=== PATIENT | male | born 1980 | race African-American/Black ===

== ENCOUNTER 2017-02-10 12:27 | Inpatient (IN) | payer OTHER ==
[2017-02-10 15:04] VITALS: BMI 28.5
--- NOTE | 2017-02-10 18:15 | HP ---
COWS - Scale Resting Pulse: 1= ID [id number] Sweatin= Chills/Flushing Restless Observation: 1= Difficult to Sit Still Pupil Size: 0= Normal to Room Light Bone or Joint Aches: 2= Severe Diffuse Aches Runny Nose/ Eye Tearin= Runny Nose/Eyes GI Upset > 30mins: 2= Nausea/Diarrhea Tremor Observation: 2= Slight Tremor Visible Yawning Observation: 1= 1-2x During Session Anxiety or Irritability: 2=Irritable/Anxious Goose Flesh Skin: 0=Smooth Skin COWS Score: 14 Admission [facility] Chief Complaint: withdrawal sx Allergies/Adverse Reactions: Allergies Allergy/AdvReac Type Severity Reaction Status Date / Time sulfur [From Sulfur-8] Allergy Verified 02/10/17 18:12 History of Present Illness: 36 years old male with long history of opiate nicotine dependence has hypertension rhnitis and anxiety is admitted to detox Exam Limitations: No Limitations - Ebola screening Have you traveled outside of the country in the last 21 days: No Have you had contact with anyone from an Ebola affected area: No Have you been sick,other than usual withdrawal symptoms: No Do you have a fever: No - Review of Systems Constitutional: Chills, Changes in sleep, Weight Stable EENT: reports: No Symptoms Reported Respiratory: reports: No Symptoms reported Cardiac: reports: No Symptoms Reported GI: reports: Nausea, Poor Appetite, Poor Fluid Intake, Abdominal cramping : reports: No Symptoms Reported Musculoskeletal: reports: Back Pain, Joint Pain, Muscle Pain, Neck Pain Integumentary: reports: No Symptoms Reported Neuro: reports: Tremors Endocrine: reports: No Symptoms Reported Hematology: reports: No Symptoms Reported Psychiatric: reports: Judgement Intact, Orientated x3, Anxious Other Systems: Reviewed and Negative Patient History - Patient Medical History Hx Anemia: No Hx Asthma: No Hx Chronic Obstructive Pulmonary Disease (COPD): No Hx Cancer: No Hx Cardiac Disorders: No Hx Congestive Heart Failure: No Hx Hypertension: Yes Hx Hypercholesterolemia: No Hx Pacemaker: No Hx Seizures: No Hx Dementia: No Hx Diabetes: No Hx Gastrointestinal Disorders: No Hx Liver Disease: No Hx Genitourinary Disorders: No Hx Sexually Transmitted Disorders: No Hx Renal Disease (ESRD): No Hx Thyroid Disease: No Hx Human Immunodeficiency Virus (HIV): No Hx Hepatitis C: No Hx Depression: Yes Hx Suicide Attempt: No Hx Bipolar Disorder: No Hx Schizophrenia: No - Patient Surgical History Past Surgical History: No - PPD History Previous Implant?: Yes Documented Results: Negative w/o proof Implanted On Prior [facility] Admission?: No PPD to be Administered?: Yes - Smoking Cessation Smoking history: Current every day smoker Have you smoked in the past 12 months: Yes Aproximately how many cigarettes per day: 5 Cigars Per Day: 0 Hx Chewing Tobacco Use: No Initiated information on smoking cessation: Yes 'Breaking Loose' booklet given: 02/10/17 - Substance & Tx. History Hx Alcohol Use: No Hx Substance Use: Yes Substance Use Type: Opiates Hx Substance Use Treatment: Yes - Substances Abused Alcohol Route: Inhalation Frequency: Daily Amount used: 5 bags Age of first use: 33 Date of Last Use: 02/10/17 Family Disease History - Family Disease History Family History: Unremarkable Admission Physical Exam BHS - Vital Signs Vital Signs: Vital Signs - 24 hr 02/10/17 15:02 Temperature 96.2 F L Pulse Rate 81 Respiratory 18 Rate Blood Pressure 146/90 - Physical General Appearance: Yes: Appropriately Dressed, Moderate Distress, Tremorous, Irritable, Sweating, Anxious HEENTM: Yes: Hearing grossly Normal, Normal ENT Inspection, Normocephalic, Normal Voice Respiratory: Yes: Chest Non-Tender, Lungs Clear, Normal Breath Sounds, No Respiratory Distress, No Accessory Muscle Use Neck: Yes: Supple, Trachea in good position Breast: Yes: Breasts Symetrical Cardiology: Yes: Regular Rhythm, Regular Rate, S1, S2 Abdominal: Yes: Non Tender, Soft Genitourinary: Yes: Within Normal Limits Back: Yes: Normal Inspection Musculoskeletal: Yes: full range of Motion, Gait Steady, Back pain, Muscle Pain Extremities: Yes: Normal Range of Motion, Non-Tender, Tremors Neurological: Yes: Fully Oriented, Alert, Motor Strength 5/5, Normal Response, Depressed Affect Integumentary: Yes: Warm Lymphatic: Yes: Within Normal Limits - Diagnostic (1) Opioid dependence with withdrawal Current Visit: Yes Status: Acute (2) Nicotine dependence Current Visit: Yes Status: Acute Qualifiers: Nicotine product type: cigarettes Substance use status: in withdrawal Qualified Code(s): F17.213 - Nicotine dependence, cigarettes, with withdrawal (3) Hypertension Current Visit: Yes Status: Chronic Qualifiers: Hypertension type: essential hypertension Qualified Code(s): I10 - Essential (primary) hypertension (4) Rhinitis, allergic Current Visit: Yes Status: Chronic Qualifiers: Allergic rhinitis trigger: pollen (5) Anxiety Current Visit: Yes Status: Suspected Cleared for Admission [facility] - Detox or Rehab [facility] Level of Care: Medically Managed Detox Regimen/Protocol: Methadone [facility] Breath Alcohol Content Breath Alcohol Content: 0 Urine Drug Screen - Results Drug Screen Negative: No Urine Drug Screen Results: OPI-Opiates
[2017-02-10] MEDS ORDERED: MENTHOL/PHENOL 1 EACH UD MM PRN (18:17)
[2017-02-10] MEDS ORDERED: P-EPHED 60MG/TRIPROLIDI 2.5MG TABLET PO PRN (18:17)
[2017-02-10] MEDS ORDERED: MAGNESIUM CITRATE 300 ML BOTTLE PO PRN (18:17)
[2017-02-10] MEDS ORDERED: ACETAMINOPHEN 325 MG TABLET (FP) PO PRN (18:17)
[2017-02-10] MEDS ORDERED: MAG HYDROX/AL HYDROX/SIMETH 30 ML UNIT-DOSE CUP PO PRN (18:17)
[2017-02-10] MEDS ORDERED: IBUPROFEN 400 MG TABLET (FP) PO PRN (18:17)
[2017-02-10] MEDS ORDERED: NICOTINE POLACRILEX 2 MG GUM BC PRN (18:17)
[2017-02-10] MEDS ORDERED: guaiFENesin/D-METHORPHAN HB 10 ML UNIT-DOSE CUPS PO PRN (18:17)
[2017-02-10] MEDS ORDERED: MAGNESIUM HYDROX 2400MG/30ML ORAL SUSPENSION 30 ML CUP PO PRN (18:17)
[2017-02-10] MEDS ORDERED: LOPERAMIDE HCL 2 MG CAPSULE PO PRN (18:17)
[2017-02-10] MEDS ORDERED: LISINOPRIL 20 MG TABLET (FP) PO SCH (18:30)
[2017-02-10] MEDS ORDERED: amLODIPine BESYLATE 10 MG TABLET (FP) PO SCH (18:30)
[2017-02-10] MEDS ORDERED: METHADONE HCL 10 MG TABLET (FOR DETOX USE ONLY) PO ONE ×2 (19:00→23:00)
[2017-02-10] MEDS: diazePAM 5 MG TABLET PO PRN (20:37)
[2017-02-10] MEDS: LORATADINE 10 MG TABLET PO SCH (22:09)
[2017-02-10] MEDS: THIAMINE HCL 100 MG TABLET (FP) PO SCH (22:09)
[2017-02-10] MEDS: ASPIRIN 81 MG CHEWABLE TABLETS PO SCH (22:09)
[2017-02-10] MEDS: LISINOPRIL 10 MG TABLET (FP) PO SCH (22:10)
[2017-02-10] MEDS: amLODIPine BESYLATE 10 MG TABLET (FP) PO SCH (22:10)
[2017-02-10 22:57] LABS: URINE APPEARANCE CLEAR; URINE BILIRUBIN NEGATIVE (NEGATIVE); URINE BLOOD NEGATIVE (NEGATIVE); URINE COLOR YELLOW; URINE GLUCOSE (UA) NEGATIVE (NEGATIVE); URINE KETONE NEGATIVE (NEGATIVE); URINE LEUK ESTERASE NEGATIVE (NEGATIVE); URINE NITRITE NEGATIVE (NEGATIVE); URINE PROTEIN NEGATIVE (NEGATIVE); URINE UROBILINOGEN NEGATIVE E.U./dl (0.2-1.0)
[2017-02-11] MEDS: diazePAM 5 MG TABLET PO PRN ×2 (06:05→19:27)
--- NOTE | 2017-02-11 09:36 | CONSULT ---
[facility] Psychiatric Consult - Data Date of interview: 02/11/17 Admission source: [facility] Identifying data: First admission to [facility] for this 36 y/o AA male seeking detox treatment for opiate dependence.Patient is single,a father of three, homeless,unemployed and supported on Public Assistance. Substance Abuse History: - Smoking Cessation. Smoking history: Current every day smoker. Have you smoked in the past 12 months: Yes. Aproximately how many cigarettes per day: 5. Cigars Per Day: 0. Hx Chewing Tobacco Use: No. Initiated information on smoking cessation: Yes. 'Breaking Loose' booklet given : 02/10/17. - Substance & Tx. History. Hx Alcohol Use: No. Hx Substance Use: Yes. Substance Use Type: Opiates. Hx Substance Use Treatment: Yes. - Substances Abused. Heroin. Route: Inhalation. Frequency: Daily. Amount used: 5 bags. Age of first use: 33. Date of Last Use: 02/10/17. Confirmed by patient. Medical History: Hypertension. Psychiatric History: Patient denies. Physical/Sexual Abuse/Trauma History: Patient denies. Additional Comment: Urine Drug Screen Results: OPI-Opiates.Noted. Mental Status Exam - Mental Status Exam Alert and Oriented to: Time, Place, Person Cognitive Function: Good Patient Appearance: Well Groomed Mood: Withdrawn, Apprehensive Affect: Mood Congruent Patient Behavior: Fatigued, Appropriate, Cooperative Speech Pattern: Clear Voice Loudness: Normal Thought Process: Goal Oriented Thought Disorder: Not Present Hallucinations: Denies Suicidal Ideation: Denies Homicidal Ideation: Denies Insight/Judgement: Poor Sleep: Well Appetite: Good Muscle strength/Tone: Normal Gait/Station: Normal Psychiatric Findings - Problem List ([place] 1, 2,3) (1) Opioid dependence with withdrawal Current Visit: Yes Status: Acute (2) Nicotine dependence Current Visit: Yes Status: Acute Qualifiers: Nicotine product type: cigarettes Substance use status: in withdrawal Qualified Code(s): F17.213 - Nicotine dependence, cigarettes, with withdrawal (3) Substance induced mood disorder Current Visit: Yes Status: Acute (4) Hypertension Current Visit: Yes Status: Chronic Qualifiers: Hypertension type: essential hypertension Qualified Code(s): I10 - Essential (primary) hypertension - Initial Treatment Plan Initial Treatment Plan: Psychoeducation.Detoxification.Observation.
[2017-02-11] MEDS ORDERED: METHADONE HCL 10 MG TABLET (FOR DETOX USE ONLY) PO ONE (10:00)
--- NOTE | 2017-02-11 10:47 | PN ---
BHS COWS - Scale Resting Pulse: 0= [place] 80 or Below Sweatin= Chills/Flushing Restless Observation: 3= Extraneous Movement Pupil Size: 2= Moderately Dilated Bone or Joint Aches: 4=Acute Joint/Muscle Pain Runny Nose/ Eye Tearin= Nasal Congestion GI Upset > 30mins: 1= Stomach Cramp Tremor Observation of Outstretched Hands: 1= Tremor [place], Not Seen Yawning Observation: 2= >3x During Session Anxiety or Irritability: 2=Irritable/Anxious Goose Flesh Skin: 0=Smooth Skin COWS Score: 17 BHS Progress Note (SOAP) Subjective: ANXIETY,IRRITABILITY,MUSCLE ACHES/SPASMS. Objective: 02/11/17 10:46 Vital Signs Temperature 95.8 F L 02/11/17 09:59 Pulse Rate 78 02/11/17 09:59 Respiratory Rate 18 02/11/17 09:59 Blood Pressure 130/70 02/11/17 09:59 O2 Sat by Pulse Oximetry (%) Laboratory Last Values Urine Color Yellow 02/10/17 16:00 Urine Appearance Clear 02/10/17 16:00 Urine pH 5.0 (5.0-8.0) 02/10/17 16:00 Ur Specific [place] 1.026 (1.001-1.035) 02/10/17 16:00 Urine Protein Negative (NEGATIVE) 02/10/17 16:00 Urine Glucose (UA) Negative (NEGATIVE) 02/10/17 16:00 Urine Ketones Negative (NEGATIVE) 02/10/17 16:00 Urine Blood Negative (NEGATIVE) 02/10/17 16:00 Urine Nitrite Negative (NEGATIVE) 02/10/17 16:00 Urine Bilirubin Negative (NEGATIVE) 02/10/17 16:00 Urine Urobilinogen Negative E.U./dl (0.2-1.0) 02/10/17 16:00 Ur Leukocyte Esterase Negative (NEGATIVE) 02/10/17 16:00 OTHER LABS PENDING Assessment: 02/11/17 10:46 WITHDRAWAL SX Plan: CONTINUE DETOX
[2017-02-11] MEDS: NICOTINE 14 MG/24 HOURS TOPICAL PATCH TD SCH (10:52)
[2017-02-11] MEDS: PRENATAL VITAMINS W/ FOLIC ACID TABLET (FP) PO SCH (10:52)
--- NOTE | 2017-02-11 11:24 | EKG ---
Test Reason : Blood Pressure : / mmHG Vent. Rate : 061 BPM Atrial Rate : 061 BPM P-R Int : 138 ms QRS Dur : 088 ms QT Int : 446 ms P-R-T Axes : 023 070 029 degrees QTc Int : 448 ms NORMAL SINUS RHYTHM NO PREVIOUS ECGS AVAILABLE Confirmed by JOHNNY SHANNON MD ([id number]) on 02/11/2017 11:24:08 AM Referred By: Confirmed By:JOHNNY SHANNON MD
[2017-02-11] MEDS: CYCLOBENZAPRINE HCL 10 MG TABLET (FP) PO SCH ×2 (13:10→22:17)
[2017-02-11] MEDS: LORATADINE 10 MG TABLET PO SCH (22:17)
[2017-02-11] MEDS: LISINOPRIL 10 MG TABLET (FP) PO SCH (22:17)
[2017-02-11] MEDS: ASPIRIN 81 MG CHEWABLE TABLETS PO SCH (22:17)
[2017-02-11] MEDS: amLODIPine BESYLATE 10 MG TABLET (FP) PO SCH (22:17)
[2017-02-11] MEDS: THIAMINE HCL 100 MG TABLET (FP) PO SCH (22:18)
[2017-02-11] MEDS: diphenhydrAMINE HCL 50 MG CAPSULE PO PRN (22:19)
[2017-02-12] MEDS: diazePAM 5 MG TABLET PO PRN ×3 (02:05→20:59)
[2017-02-12] MEDS: CYCLOBENZAPRINE HCL 10 MG TABLET (FP) PO SCH ×3 (07:21→22:21)
[2017-02-12] MEDS ORDERED: METHADONE HCL 5 MG TABLET (FOR DETOX USE ONLY) PO ONE (10:00)
[2017-02-12] MEDS: PRENATAL VITAMINS W/ FOLIC ACID TABLET (FP) PO SCH (10:15)
[2017-02-12] MEDS: NICOTINE 14 MG/24 HOURS TOPICAL PATCH TD SCH (10:15)
[2017-02-12 10:21] LABS: MCH 28.1 pg (25.7-33.7); MEAN CELL VOLUME 85.2 fl (80-96); MEAN PLT VOLUME 8.6 fl (7.5-11.1); PLATELET COUNT 218 K/MM3 (134-434); WHITE BLOOD COUNT 4.8 K/mm3 (4.0-10.0)
[2017-02-12 13:08] LABS: ALBUMIN 3.6 g/dl (3.4-5.0); ANION GAP 5 (8-16); CALCIUM 8.8 mg/dL (8.5-10.1); CO2 30 mmol/L (21-32); CREATININE 0.9 mg/dL (0.7-1.3); GLUCOSE,RANDOM 98 mg/dL (74-106); SGOT/AST 18 U/L (15-37); SGPT/ALT 28 U/L (12-78)
[2017-02-12 13:09] LABS: ALK PHOS 56 U/L (45-117); BILIRUBIN,TOTAL 0.3 mg/dL (0.2-1.0); TOT PROT 7.1 g/dl (6.4-8.2)
--- NOTE | 2017-02-12 13:11 | PN ---
BHS COWS - Scale Resting Pulse: 0= [place] 80 or Below Sweatin=Flushed/Facial Moisture Restless Observation: 1= Difficult to Sit Still Pupil Size: 0= Normal to Room Light Bone or Joint Aches: 2= Severe Diffuse Aches Runny Nose/ Eye Tearin= Nasal Congestion GI Upset > 30mins: 2= Nausea/Diarrhea Tremor Observation of Outstretched Hands: 2= Slight Tremor Visible Yawning Observation: 1= 1-2x During Session Anxiety or Irritability: 2=Irritable/Anxious Goose Flesh Skin: 0=Smooth Skin COWS Score: 13 BHS Progress Note (SOAP) Subjective: abdominal discomfort, tremors, anxiety , sweats and muscle aches Objective: 02/12/17 13:10 Vital Signs - 8 hr 02/12/17 09:45 Temperature 96 F L Pulse Rate 74 Respiratory 20 Rate Blood Pressure 124/89 Laboratory Last Values WBC 4.8 K/mm3 (4.0-10.0) 02/12/17 09:35 RBC 4.34 M/mm3 (4.00-5.60) 02/12/17 09:35 Hgb 12.2 GM/dL (11.7-16.9) 02/12/17 09:35 Hct 37.0 % (35.4-49) 02/12/17 09:35 MCV 85.2 fl (80-96) 02/12/17 09:35 MCHC 33.0 g/dl (32.0-35.9) 02/12/17 09:35 RDW 13.0 % (11.9-15.9) 02/12/17 09:35 Plt Count 218 K/MM3 (134-434) 02/12/17 09:35 MPV 8.6 fl (7.5-11.1) 02/12/17 09:35 Urine Color Yellow 02/10/17 16:00 Urine Appearance Clear 02/10/17 16:00 Urine pH 5.0 (5.0-8.0) 02/10/17 16:00 Ur Specific [place] 1.026 (1.001-1.035) 02/10/17 16:00 Urine Protein Negative (NEGATIVE) 02/10/17 16:00 Urine Glucose (UA) Negative (NEGATIVE) 02/10/17 16:00 Urine Ketones Negative (NEGATIVE) 02/10/17 16:00 Urine Blood Negative (NEGATIVE) 02/10/17 16:00 Urine Nitrite Negative (NEGATIVE) 02/10/17 16:00 Urine Bilirubin Negative (NEGATIVE) 02/10/17 16:00 Urine Urobilinogen Negative E.U./dl (0.2-1.0) 02/10/17 16:00 Ur Leukocyte Esterase Negative (NEGATIVE) 02/10/17 16:00 UA noted, labs pending Assessment: 02/12/17 13:11 withdrawal sx Plan: continue detox
[2017-02-12] MEDS: ASPIRIN 81 MG CHEWABLE TABLETS PO SCH (22:21)
[2017-02-12] MEDS: LORATADINE 10 MG TABLET PO SCH (22:21)
[2017-02-12] MEDS: THIAMINE HCL 100 MG TABLET (FP) PO SCH (22:21)
[2017-02-12] MEDS: amLODIPine BESYLATE 10 MG TABLET (FP) PO SCH (22:22)
[2017-02-12] MEDS: LISINOPRIL 10 MG TABLET (FP) PO SCH (22:22)
[2017-02-12] MEDS: diphenhydrAMINE HCL 50 MG CAPSULE PO PRN (22:23)
[2017-02-13] MEDS: CYCLOBENZAPRINE HCL 10 MG TABLET (FP) PO SCH ×3 (06:09→22:22)
[2017-02-13] MEDS ORDERED: METHADONE HCL 5 MG TABLET (FOR DETOX USE ONLY) PO ONE (10:00)
[2017-02-13] MEDS: PRENATAL VITAMINS W/ FOLIC ACID TABLET (FP) PO SCH (10:18)
[2017-02-13] MEDS: NICOTINE 14 MG/24 HOURS TOPICAL PATCH TD SCH (10:18)
[2017-02-13] MEDS: diazePAM 5 MG TABLET PO PRN (10:21)
--- NOTE | 2017-02-13 15:48 | PN ---
BHS Progress Note (SOAP) Subjective: Sweating, interrupted sleep, anxious Objective: 02/13/17 15:44 Last Vital Signs Temp Pulse Resp BP Pulse Ox 96.8 F L 82 18 105/75 02/13/17 15:02 02/13/17 15:02 02/13/17 15:02 02/13/17 15:02 Laboratory Tests 02/10/17 02/12/17 02/12/17 16:00 09:35 09:35 WBC 4.8 RBC 4.34 Hgb 12.2 Hct 37.0 MCV 85.2 MCHC 33.0 RDW 13.0 Plt Count 218 MPV 8.6 Sodium 139 Potassium 3.9 Chloride 104 Carbon Dioxide 30 Anion Gap 5 L BUN 10 Creatinine 0.9 Creat Clearance w eGFR > 60 Random Glucose 98 Calcium 8.8 Total Bilirubin 0.3 AST 18 ALT 28 Alkaline Phosphatase 56 Total Protein 7.1 Albumin 3.6 Urine Color Yellow Urine Appearance Clear Urine pH 5.0 Ur Specific [place] 1.026 Urine Protein Negative Urine Glucose (UA) Negative Urine Ketones Negative Urine Blood Negative Urine Nitrite Negative Urine Bilirubin Negative Urine Urobilinogen Negative Ur Leukocyte Esterase Negative RPR Titer 02/12/17 09:35 WBC RBC Hgb Hct MCV MCHC RDW Plt Count MPV Sodium Potassium Chloride Carbon Dioxide Anion Gap BUN Creatinine Creat Clearance w eGFR Random Glucose Calcium Total Bilirubin AST ALT Alkaline Phosphatase Total Protein Albumin Urine Color Urine Appearance Urine pH Ur Specific [place] Urine Protein Urine Glucose (UA) Urine Ketones Urine Blood Urine Nitrite Urine Bilirubin Urine Urobilinogen Ur Leukocyte Esterase RPR Titer Nonreactive Labs noted Assessment: 02/13/17 15:46 Withdrawal symptoms Plan: Continue detox
[2017-02-13] MEDS: ASPIRIN 81 MG CHEWABLE TABLETS PO SCH (22:22)
[2017-02-13] MEDS: THIAMINE HCL 100 MG TABLET (FP) PO SCH (22:22)
[2017-02-13] MEDS: LORATADINE 10 MG TABLET PO SCH (22:22)
[2017-02-13] MEDS: LISINOPRIL 10 MG TABLET (FP) PO SCH (22:23)
[2017-02-13] MEDS: amLODIPine BESYLATE 10 MG TABLET (FP) PO SCH (22:23)
[2017-02-13] MEDS: diphenhydrAMINE HCL 50 MG CAPSULE PO PRN (22:24)
[2017-02-14] MEDS: CYCLOBENZAPRINE HCL 10 MG TABLET (FP) PO SCH ×3 (05:56→21:54)
[2017-02-14] MEDS ORDERED: METHADONE HCL 10 MG TABLET (FOR DETOX USE ONLY) PO ONE (10:00)
[2017-02-14] MEDS: PRENATAL VITAMINS W/ FOLIC ACID TABLET (FP) PO SCH (10:17)
[2017-02-14] MEDS: NICOTINE 14 MG/24 HOURS TOPICAL PATCH TD SCH (10:17)
--- NOTE | 2017-02-14 15:33 | PN ---
BHS Progress Note (SOAP) Subjective: Sweating,interrupted sleep,restless Objective: 02/14/17 15:32 Vital Signs - 8 hr 02/14/17 09:48 Temperature 96.0 F L Pulse Rate 89 Respiratory 20 Rate Blood Pressure 112/80 Laboratory Tests 02/10/17 02/12/17 02/12/17 16:00 09:35 09:35 WBC 4.8 RBC 4.34 Hgb 12.2 Hct 37.0 MCV 85.2 MCHC 33.0 RDW 13.0 Plt Count 218 MPV 8.6 Sodium 139 Potassium 3.9 Chloride 104 Carbon Dioxide 30 Anion Gap 5 L BUN 10 Creatinine 0.9 Creat Clearance w eGFR > 60 Random Glucose 98 Calcium 8.8 Total Bilirubin 0.3 AST 18 ALT 28 Alkaline Phosphatase 56 Total Protein 7.1 Albumin 3.6 Urine Color Yellow Urine Appearance Clear Urine pH 5.0 Ur Specific [place] 1.026 Urine Protein Negative Urine Glucose (UA) Negative Urine Ketones Negative Urine Blood Negative Urine Nitrite Negative Urine Bilirubin Negative Urine Urobilinogen Negative Ur Leukocyte Esterase Negative RPR Titer 02/12/17 09:35 WBC RBC Hgb Hct MCV MCHC RDW Plt Count MPV Sodium Potassium Chloride Carbon Dioxide Anion Gap BUN Creatinine Creat Clearance w eGFR Random Glucose Calcium Total Bilirubin AST ALT Alkaline Phosphatase Total Protein Albumin Urine Color Urine Appearance Urine pH Ur Specific [place] Urine Protein Urine Glucose (UA) Urine Ketones Urine Blood Urine Nitrite Urine Bilirubin Urine Urobilinogen Ur Leukocyte Esterase RPR Titer Nonreactive labs noted Assessment: 02/14/17 15:32 Withdrawal sx. Plan: Continue detox
[2017-02-14] MEDS: amLODIPine BESYLATE 10 MG TABLET (FP) PO SCH (21:54)
[2017-02-14] MEDS: LISINOPRIL 10 MG TABLET (FP) PO SCH (21:54)
[2017-02-14] MEDS: ASPIRIN 81 MG CHEWABLE TABLETS PO SCH (21:54)
[2017-02-14] MEDS: diphenhydrAMINE HCL 50 MG CAPSULE PO PRN (21:55)
[2017-02-14] MEDS: LORATADINE 10 MG TABLET PO SCH (21:55)
[2017-02-14] MEDS: THIAMINE HCL 100 MG TABLET (FP) PO SCH (21:56)
[2017-02-14 22:31] VITALS: PULSE 88
[2017-02-15] MEDS: CYCLOBENZAPRINE HCL 10 MG TABLET (FP) PO SCH (05:57)
[2017-02-15] MEDS ORDERED: METHADONE HCL 5 MG TABLET (FOR DETOX USE ONLY) PO ONE (06:00)
[2017-02-15 06:30] VITALS: BP 116/82; TEMP 98
--- NOTE | 2017-02-15 10:13 | DS ---
[facility] Detox Discharge Summary Admission Date: 02/10/17 Discharge Date: 02/15/17 - History Present History: Opioid Dependence Additional Comments: DETOX COMPLETED.ALERT O X 3. NAD. Pertinent Past History: HTN - Physical Exam Results Vital Signs: Vital Signs Temperature 98.0 F 02/15/17 06:29 Pulse Rate 88 02/15/17 06:29 Respiratory Rate 16 02/15/17 06:29 Blood Pressure 116/82 02/15/17 06:29 O2 Sat by Pulse Oximetry (%) Pertinent Admission Physical Exam Findings: WITHDRAWAL SX Laboratory Last Values WBC 4.8 K/mm3 (4.0-10.0) 02/12/17 09:35 RBC 4.34 M/mm3 (4.00-5.60) 02/12/17 09:35 Hgb 12.2 GM/dL (11.7-16.9) 02/12/17 09:35 Hct 37.0 % (35.4-49) 02/12/17 09:35 MCV 85.2 fl (80-96) 02/12/17 09:35 MCHC 33.0 g/dl (32.0-35.9) 02/12/17 09:35 RDW 13.0 % (11.9-15.9) 02/12/17 09:35 Plt Count 218 K/MM3 (134-434) 02/12/17 09:35 MPV 8.6 fl (7.5-11.1) 02/12/17 09:35 Sodium 139 mmol/L (136-145) 02/12/17 09:35 Potassium 3.9 mmol/L (3.5-5.1) 02/12/17 09:35 Chloride 104 mmol/L (98-107) 02/12/17 09:35 Carbon Dioxide 30 mmol/L (21-32) 02/12/17 09:35 Anion Gap 5 (8-16) L 02/12/17 09:35 BUN 10 mg/dL (7-18) 02/12/17 09:35 Creatinine 0.9 mg/dL (0.7-1.3) 02/12/17 09:35 Creat Clearance w eGFR > 60 (>60) 02/12/17 09:35 Random Glucose 98 mg/dL (74-106) 02/12/17 09:35 Calcium 8.8 mg/dL (8.5-10.1) 02/12/17 09:35 Total Bilirubin 0.3 mg/dL (0.2-1.0) 02/12/17 09:35 AST 18 U/L (15-37) 02/12/17 09:35 ALT 28 U/L (12-78) 02/12/17 09:35 Alkaline Phosphatase 56 U/L (45-117) 02/12/17 09:35 Total Protein 7.1 g/dl (6.4-8.2) 02/12/17 09:35 Albumin 3.6 g/dl (3.4-5.0) 02/12/17 09:35 Urine Color Yellow 02/10/17 16:00 Urine Appearance Clear 02/10/17 16:00 Urine pH 5.0 (5.0-8.0) 02/10/17 16:00 Ur Specific [place] 1.026 (1.001-1.035) 02/10/17 16:00 Urine Protein Negative (NEGATIVE) 02/10/17 16:00 Urine Glucose (UA) Negative (NEGATIVE) 02/10/17 16:00 Urine Ketones Negative (NEGATIVE) 02/10/17 16:00 Urine Blood Negative (NEGATIVE) 02/10/17 16:00 Urine Nitrite Negative (NEGATIVE) 02/10/17 16:00 Urine Bilirubin Negative (NEGATIVE) 02/10/17 16:00 Urine Urobilinogen Negative E.U./dl (0.2-1.0) 02/10/17 16:00 Ur Leukocyte Esterase Negative (NEGATIVE) 02/10/17 16:00 RPR Titer Nonreactive (NONREACTIVE) 02/12/17 09:35 - Treatment Hospital Course: Detox Protocol Followed, Detoxed Safely, Responded well, Discharged Condition Good, Rehab Referral Accepted Patient has Accepted a Rehab Referral to: [facility] - Medication Discharge Medications: Ambulatory Orders Amlodipine Besylate [Norvasc -] 5 mg PO DAILY 02/10/17 Aspirin [ASA -] 81 mg PO DAILY 02/10/17 Lisinopril [Zestril] 30 mg PO DAILY 02/10/17 - Diagnosis (1) Nicotine dependence Current Visit: Yes Status: Acute Qualifiers: Nicotine product type: cigarettes Substance use status: in withdrawal Qualified Code(s): F17.213 - Nicotine dependence, cigarettes, with withdrawal (2) Opioid dependence with withdrawal Current Visit: Yes Status: Acute (3) Substance induced mood disorder Current Visit: Yes Status: Acute (4) Hypertension Current Visit: Yes Status: Chronic Qualifiers: Hypertension type: essential hypertension Qualified Code(s): I10 - Essential (primary) hypertension (5) Rhinitis, allergic Current Visit: Yes Status: Chronic Qualifiers: Allergic rhinitis trigger: pollen - AMA Did Patient Leave Against Medical Advice: No
== END 2017-02-15 09:52 | disposition home or self-care (01) | DRG 773 ==
LOC: YASAS 12:27 → Y3N 18:34
PROVIDERS: ADMIT Internal Medicine; ATTEND Internal Medicine
PROC: HZ2ZZZZ Detoxification Services for Substance Abuse Treatment (ICD-10-PCS; principal; 2017-02-15)
DX: F11.23 Opioid dependence with withdrawal (principal); F17.213 Nicotine dependence, cigarettes, with withdrawal; F19.24 Other psychoactive substance dependence with psychoactive substance-induced mood disorder; I10 Essential (primary) hypertension; J30.1 Allergic rhinitis due to pollen; F41.9 Anxiety disorder, unspecified
CPT/HCPCS: 36415; 80053; 81003; 85027; 86593; 93005; 93010